=== PATIENT | female | born 1995 | race Caucasian/White ===

== ENCOUNTER 2017-05-06 10:53 | Emergency (ER) | END 2017-05-06 17:50 | disposition home or self-care (01) ==

== ENCOUNTER 2017-06-12 16:12 | Emergency (ER) | END 2017-06-12 19:27 | disposition left against medical advice (07) ==

== ENCOUNTER 2017-12-16 05:30 | Inpatient (IN) | END 2017-12-18 14:55 | disposition home or self-care (01) | DRG 775 ==

== ENCOUNTER 2017-12-21 16:40 | Emergency (ER) | END 2017-12-21 19:21 | disposition home or self-care (01) ==